=== PATIENT | male | born 1980 | race African-American/Black ===

== ENCOUNTER 2020-10-11 | Emergency (ER) | payer OTHER ==
[~2020-10-11] VITALS: Ht 208.3 cm; Wt 131.5 kg
[2020-10-11 01:47] LABS: URINE BILIRUBIN NEGATIVE (Negative); URINE BLOOD NEGATIVE (Negative); URINE CLARITY CLEAR; URINE COLOR YELLOW; URINE GLUCOSE-RANDOM* NEGATIVE (Negative); URINE KETONES NEGATIVE (Negative); URINE LEUKOCYTES-REFLEX NEGATIVE (Negative); URINE NITRITE-REFLEX NEGATIVE (Negative); URINE PROTEIN (DIPSTICK) NEGATIVE (Negative); URINE UROBILINOGEN 0.2 E.U./dl (0.2-1.0)
[2020-10-11] MEDS ORDERED: CLOTRIMAZOLE-321 GM VAG (02:26)
[2020-10-11] MEDS ORDERED: DOXYCYCLINE 10100 M2 PO (02:26)
[2020-10-11 04:00] VITALS: BP 147/68
== END 2020-10-11 04:22 | disposition home or self-care (01) ==
LOC: ER
PROVIDERS: Emergency Medicine
DX: B35.6 Tinea cruris (principal)